=== PATIENT | male | born 1980 | race Caucasian/White ===

== ENCOUNTER → 2018-10-11 | Outpatient (CLI) | payer OTHER, SELFPAY ==
[2018-10-11 08:14] LABS: HEMATOCRIT 41.2 % (42.0-52.0); HEMOGLOBIN 13.8 g/dl (13.5-17.5); MEAN CORPUSCULAR HEMOGLOBIN 30.1 pg (27.0-33.0); MEAN CORPUSCULAR HGB CONC 33.5 g/dl (32.0-36.5); MEAN CORPUSCULAR VOLUME 89.8 fl (80.0-96.0); PLATELET COUNT, AUTOMATED 161 10^3/uL (150-450); RED BLOOD COUNT 4.59 10^6/uL (4.30-6.10); WHITE BLOOD COUNT 4.8 10^3/uL (4.0-10.0)
[2018-10-11 08:30] LABS: ALBUMIN 3.8 GM/DL (3.2-5.2); ALT/SGPT 18 U/L (12-78); BILIRUBIN,TOTAL 0.3 MG/DL (0.2-1.0); BLOOD UREA NITROGEN 16 MG/DL (7-18); CALCIUM LEVEL 9.2 MG/DL (8.5-10.1); CARBON DIOXIDE LEVEL 26 MEQ/L (21-32); CHLORIDE LEVEL 106 MEQ/L (98-107); CREATININE FOR GFR 0.83 MG/DL (0.70-1.30); GLOMERULAR FILTRATION RATE > 60.0 (>60); GLUCOSE, FASTING 85 MG/DL (70-100); SODIUM LEVEL 142 MEQ/L (136-145); TOTAL PROTEIN 7.2 GM/DL (6.4-8.2)
[2018-10-11 09:41] LABS: CHLAMYDIA DNA AMPLIFICATION NEGATIVE (NEGATIVE); GC DNA AMPLIFICATION NEGATIVE (NEGATIVE)
[2018-10-11 10:52] LABS: HEPATITIS B SURFACE ANTIGEN NEGATIVE (NEGATIVE)
[2018-10-11 11:20] LABS: HIV 1&2 SCREEN CENTAUR NEGATIVE (NEGATIVE)
[2018-10-11 11:46] LABS: HEPATITIS C VIRUS ABY INDEX > 11.0 INDEX (<0.8)
--- NOTE | 2018-10-13 07:48 | ECGEPIP ---
Stationary ECG Study [facility] Test Date: 2018-10-11 Pat Name: JOE HERNÁNDEZ Department: Room: - Gender: M [employer]: : 1980 Requested By: Hernán Rodriguez Order Number: [id number] Reading MD: Honorio Epps Measurements Intervals [place] Rate: 66 P: 52 AL: 173 QRS: -3 QRSD: 102 T: 46 QT: 410 QTc: 431 Interpretive Statements SINUS RHYTHM WITH SINUS ARRHYTHMIA Comparison tracing not on file Electronically Signed On 10-13-2018 7:47:50 EST by Honorio Epps
== END ==
LOC: M LAB 07:17
PROVIDERS: ATTEND Family Medicine
DX: F11.20 Opioid dependence, uncomplicated (principal)

== ENCOUNTER → 2018-10-11 | Outpatient (CLI) | payer OTHER, SELFPAY ==
[2018-10-11 08:07] LABS: APPEARANCE, URINE CLEAR (CLEAR); BACTERIA, URINE AUTO NEGATIVE (NEGATIVE); BILIRUBIN, URINE AUTO NEGATIVE (NEGATIVE); BLOOD, URINE BLOOD NEGATIVE (NEGATIVE); COLOR, URINE YELLOW (YELLOW); GLUCOSE, URINE (UA) AUTO NEGATIVE (NEGATIVE); KETONE, URINE AUTO NEGATIVE (NEGATIVE); LEUKOCYTE ESTERASE, URINE AUTO NEGATIVE (NEGATIVE); MUCUS, URINE SMALL (NEGATIVE); NITRITE, URINE AUTO NEGATIVE (NEGATIVE); PROTEIN, URINE AUTO NEGATIVE (NEGATIVE); RBC, URINE AUTO 0 /HPF (0-3); SPECIFIC GRAVITY URINE AUTO 1.027 (1.002-1.035); SQUAMOUS EPITHELIAL CELL UR AU 0 /HPF (0-6); UROBILINOGEN, URINE AUTO 0.2 mg/dL (0.0-2.0); WBC, URINE AUTO 0 /HPF (0-3)
[2018-10-11 08:14] LABS: BASO # 0.1 10^3/uL (0.0-0.2); BASO % 1.3 % (0.0-1.0); EOS # 0.2 10^3/uL (0.0-0.50); EOS % 4.8 % (0.0-3.0); HEMATOCRIT 41.1 % (42.0-52.0); HEMOGLOBIN 13.9 g/dl (13.5-17.5); LYMPH % 40.8 % (24.0-44.0); MEAN CORPUSCULAR HEMOGLOBIN 30.4 pg (27.0-33.0); MEAN CORPUSCULAR HGB CONC 33.8 g/dl (32.0-36.5); MEAN CORPUSCULAR VOLUME 89.9 fl (80.0-96.0); MONO # 0.6 10^3/uL (0.0-0.8); MONO % 13.1 % (0.0-5.0); NEUTROPHILS # 1.9 10^3/uL (1.8-7.7); NEUTROPHILS % 39.8 % (36.0-66.0); PLATELET COUNT, AUTOMATED 164 10^3/uL (150-450); RED BLOOD COUNT 4.57 10^6/uL (4.30-6.10); WHITE BLOOD COUNT 4.8 10^3/uL (4.0-10.0)
[2018-10-11 08:21] LABS: ALBUMIN 3.8 GM/DL (3.2-5.2); ALT/SGPT 19 U/L (12-78); BILIRUBIN,TOTAL 0.3 MG/DL (0.2-1.0); BLOOD UREA NITROGEN 16 MG/DL (7-18); CALCIUM LEVEL 9.1 MG/DL (8.5-10.1); CARBON DIOXIDE LEVEL 24 MEQ/L (21-32); CHLORIDE LEVEL 107 MEQ/L (98-107); CREATININE FOR GFR 0.83 MG/DL (0.70-1.30); GLOMERULAR FILTRATION RATE > 60.0 (>60); GLUCOSE, FASTING 87 MG/DL (70-100); SODIUM LEVEL 141 MEQ/L (136-145); TOTAL PROTEIN 7.1 GM/DL (6.4-8.2)
[2018-10-11 10:47] LABS: HEPATITIS B SURFACE ANTIBODY POSITIVE (POSITIVE)
[2018-10-11 10:56] LABS: HEPATITIS B SURFACE ANTIGEN NEGATIVE (NEGATIVE)
[2018-10-11 11:46] LABS: HEPATITIS C VIRUS ABY INDEX > 11.0 INDEX (<0.8)
== END ==
LOC: M LAB 07:09
PROVIDERS: ATTEND Physician Assistant Medical
DX: Z02.2 Encounter for examination for admission to residential institution (principal)

== ENCOUNTER 2018-12-27 11:58 | Emergency (ER) | payer OTHER ==
[~2018-12-27] VITALS: Ht 172.7 cm; Wt 78.0 kg
[2018-12-27 11:59] VITALS: BP 140/79
[2018-12-27] MEDS ORDERED: METH10CO PO (12:33)
[2018-12-27] MEDS ORDERED: diphenhydrAMINE INJ 50MG/ML VIAL (J1200) IV STA (14:12)
[2018-12-27] MEDS ORDERED: NS 1,000 ML IV ONE (14:15)
--- NOTE | 2018-12-27 14:51 | REP ---
Clinical: Head injury . Comparison: None . Findings: The ventricles, sulci, and cisterns are normal in position and appearance. Santiago-white differentiation is maintained. No acute intracranial hemorrhage, mass/mass effect, pathology or trauma/injury. No evidence for acute infarction. No extra-axial fluid collection. Calvarium is intact. Paranasal sinuses and mastoid air cells are clear. Impression: Normal noncontrast head CT. No evidence for acute intracranial pathology or trauma/injury. Electronically Signed by Jesus Alberto Johnson MD 12/27/2018 02:42 P
[2018-12-27 15:22] LABS: HEMATOCRIT 43.9 % (42.0-52.0); HEMOGLOBIN 14.6 g/dl (13.5-17.5); MEAN CORPUSCULAR HEMOGLOBIN 29.9 pg (27.0-33.0); MEAN CORPUSCULAR HGB CONC 33.3 g/dl (32.0-36.5); PLATELET COUNT, AUTOMATED 220 10^3/uL (150-450); RED BLOOD COUNT 4.88 10^6/uL (4.30-6.10); WHITE BLOOD COUNT 15.5 10^3/uL (4.0-10.0)
[2018-12-27] MEDS ORDERED: BENZTROPINE MESYLATE 2MG/2ML VIAL IV ONE (16:00)
[2018-12-27 16:10] LABS: ALT/SGPT 63 U/L (12-78); BILIRUBIN,DIRECT 0.2 MG/DL (0.0-0.2); BILIRUBIN,TOTAL 0.9 MG/DL (0.2-1.0); BLOOD UREA NITROGEN 24 MG/DL (7-18); CALCIUM LEVEL 8.8 MG/DL (8.5-10.1); CARBON DIOXIDE LEVEL 25 MEQ/L (21-32); CHLORIDE LEVEL 104 MEQ/L (98-107); CPK CREATINE PHOSPHOKINASE 6186 U/L (39-308); CREATININE FOR GFR 1.12 MG/DL (0.70-1.30); GLOMERULAR FILTRATION RATE > 60.0 (>60); GLUCOSE, FASTING 98 MG/DL (70-100); SODIUM LEVEL 136 MEQ/L (136-145); TOTAL PROTEIN 7.4 GM/DL (6.4-8.2)
[2018-12-27 16:15] LABS: ATYPICAL LYMPH 3 % (0-5); BASOPHILS 3 % (0-4); LYMPHOCYTES 16 % (16-52); MONOCYTES 9 % (0-8); NEUTROPHILS 69 % (35-75)
[2018-12-27 16:16] LABS: PLATELET ESTIMATE NORMAL (NORMAL)
[2018-12-27] MEDS ORDERED: LORazepam 2 MG/ML VIAL (J2060) IV STA (16:44)
== END 2018-12-27 16:59 | disposition left against medical advice (07) ==
LOC: M ED 11:58
DX: M62.82 Rhabdomyolysis (principal); G25.9 Extrapyramidal and movement disorder, unspecified; F19.10 Other psychoactive substance abuse, uncomplicated; F19.20 Other psychoactive substance dependence, uncomplicated; Z72.0 Tobacco use; Z79.899 Other long term (current) drug therapy; Z53.21 Procedure and treatment not carried out due to patient leaving prior to being seen by health care provider
CPT/HCPCS: 70450; 80048; 80076; 82550; 85025; 96374; 96375; 99283; J1200

== ENCOUNTER → 2019-10-28 | Outpatient (CLI) | payer OTHER ==
[~2019-10-28] MED LIST: METH10CO PO
== END ==
LOC: M OUTALCOH 08:22
PROVIDERS: ATTEND Psychiatry & Neurology Addiction Medicine
DX: F16.10 Hallucinogen abuse, uncomplicated (principal)

== ENCOUNTER 2019-11-10 08:00 | Outpatient (RCR) | payer OTHER | END 2019-11-26 | LOC: M OUTALCOH 08:00 | PROVIDERS: ATTEND Psychiatry & Neurology Addiction Medicine | DX: F16.10 Hallucinogen abuse, uncomplicated (principal) ==

== ENCOUNTER → 2020-03-26 | Outpatient (CLI) | payer MEDICAID, OTHER, SELFPAY ==
--- NOTE | 2020-03-26 20:35 | ECGEPIP ---
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
== END ==
LOC: M LAB 13:54
PROVIDERS: ATTEND Family Medicine
DX: F11.20 Opioid dependence, uncomplicated (principal)

== ENCOUNTER 2020-03-30 22:27 | Emergency (ER) | payer MEDICAID, OTHER, SELFPAY ==
[~2020-03-30] VITALS: Ht 172.7 cm; Wt 82.2 kg
[2020-03-31] MEDS ORDERED: GI COCKTAIL 50ML BTL(HYOSCYAMINE/MAALOX/LIDOCAINE VISCOUS)(1:3:1) PO ONE (01:30)
[2020-03-31 02:10] VITALS: BP 145/90
--- NOTE | 2020-03-31 07:26 | REP ---
Clinical: Concern for foreign body. Technique: AP and lateral soft tissue neck radiographs (three total views). Findings: Prevertebral and paravertebral soft tissues are normal. The airway is patent and midline. The osseous structures demonstrate chronic degenerative changes primarily at the C5-6 and C6-7 level with bulky anterior osteophytosis. No obvious foreign body. Impression: No obvious foreign body. Degenerative changes of the cervical spine. Electronically Signed by Jesus Alberto Johnson MD 03/31/2020 07:17 A
== END 2020-03-31 02:14 | disposition home or self-care (01) ==
LOC: M ED 22:27
DX: R09.89 Other specified symptoms and signs involving the circulatory and respiratory systems (principal); F17.210 Nicotine dependence, cigarettes, uncomplicated

== ENCOUNTER → 2020-12-17 | Outpatient (REF) | payer OTHER | LOC: M LAB REF 11:35 | PROVIDERS: ATTEND Surgery | DX: Z11.52 Encounter for screening for COVID-19 (principal) ==

== ENCOUNTER 2022-07-16 03:21 | Emergency (ER) | payer MEDICAID, OTHER ==
[~2022-07-16] VITALS: Ht 172.7 cm; Wt 57.0 kg
[2022-07-16 03:21] VITALS: BP 138/78
[2022-07-16] MEDS ORDERED: DOXYCYCLINE HYCLATE 100MG TABLET PO ONE (08:00)
[2022-07-16] MEDS ORDERED: DOXY-443 PO (08:04)
== END 2022-07-16 08:27 | disposition home or self-care (01) ==
LOC: M ED 03:21
DX: R21 Rash and other nonspecific skin eruption (principal); B95.8 Unspecified staphylococcus as the cause of diseases classified elsewhere; Z86.19 Personal history of other infectious and parasitic diseases; F17.200 Nicotine dependence, unspecified, uncomplicated; F19.10 Other psychoactive substance abuse, uncomplicated

== ENCOUNTER 2022-07-26 19:36 | Emergency (ER) | payer MEDICAID, OTHER ==
[~2022-07-26] VITALS: Ht 172.7 cm; Wt 51.8 kg
[~2022-07-26 19:36] MED LIST changes: +DOXY-443 PO
[2022-07-26 20:24] LABS: BASO % 0.4 % (0.0-1.0); EOS # 0.1 10^3/uL (0.0-0.5); EOS % 0.7 % (0.0-3.0); HEMATOCRIT 39.4 % (42.0-52.0); HEMOGLOBIN 12.6 g/dl (13.5-17.5); LYMPH # 1.2 10^3/uL (1.5-5.0); LYMPH % 10.5 % (24.0-44.0); MEAN CORPUSCULAR HEMOGLOBIN 30.4 pg (27.0-33.0); MEAN CORPUSCULAR VOLUME 95.2 fl (80.0-96.0); MONO # 0.9 10^3/uL (0.0-0.8); MONO % 8.3 % (2.0-8.0); NEUTROPHILS # 8.8 10^3/uL (1.5-8.5); NEUTROPHILS % 79.7 % (36.0-66.0); PLATELET COUNT, AUTOMATED 211 10^3/uL (150-450); RED BLOOD COUNT 4.14 10^6/uL (4.30-6.10)
[2022-07-26 20:59] LABS: ALBUMIN 3.5 GM/DL (3.2-5.2); ALKALINE PHOSPHATASE 94 U/L (45-117); ALT/SGPT 33 U/L (12-78); AST/SGOT 36 U/L (7-37); BILIRUBIN,DIRECT 0.2 MG/DL (0.0-0.2); BILIRUBIN,TOTAL 0.9 MG/DL (0.2-1.0); BLOOD UREA NITROGEN 19 MG/DL (7-18); CALCIUM LEVEL 8.5 MG/DL (8.5-10.1); CARBON DIOXIDE LEVEL 24 MEQ/L (21-32); CHLORIDE LEVEL 108 MEQ/L (98-107); CREATININE FOR GFR 0.59 MG/DL (0.70-1.30); GLOMERULAR FILTRATION RATE > 60.0 (>60); GLUCOSE, FASTING 76 MG/DL (70-100); POTASSIUM SERUM 4.1 MEQ/L (3.5-5.1); SODIUM LEVEL 140 MEQ/L (136-145); TOTAL PROTEIN 6.7 GM/DL (6.4-8.2)
[2022-07-26] MEDS ORDERED: DOXY-443 PO (22:43)
[2022-07-26] MEDS ORDERED: DOXYCYCLINE HYCLATE 100MG TABLET PO ONE (23:50)
[2022-07-27] VITALS: BP 148/90
== END 2022-07-27 | disposition home or self-care (01) ==
LOC: M ED 19:36
DX: L03.115 Cellulitis of right lower limb (principal); L03.116 Cellulitis of left lower limb; F19.10 Other psychoactive substance abuse, uncomplicated; Z86.19 Personal history of other infectious and parasitic diseases

== ENCOUNTER 2024-06-23 08:48 | Emergency (ER) | payer MEDICAID, OTHER ==
[~2024-06-23] VITALS: Ht 172.7 cm; Wt 95.9 kg
[~2024-06-23 08:48] MED LIST changes: +DOXY-323 PO; -DOXY-443 PO
[2024-06-23] MEDS ORDERED: MELO15TA28 PO (08:58)
[2024-06-23] MEDS ORDERED: BUPR8SUB (08:58)
[2024-06-23] MEDS: LIDOCAINE W/EPINEPHRINE 1% 20ML VIAL SC ONE (11:10)
[2024-06-23] MEDS: CEPHALEXIN 500 MG CAP PO ONE (11:33)
[2024-06-23] MEDS: BOOSTRIX VACCINE (TETANUS/DIPHTH/ACEL. PERTUSSIS) 0.5ML SYR IM ONE (11:34)
[2024-06-23] MEDS ORDERED: CEPH500T PO (11:57)
[2024-06-23 12:05] VITALS: BP 148/82; TEMP 97.2; O2SAT 99
== END 2024-06-23 12:06 | disposition home or self-care (01) ==
LOC: M ED 08:48
DX: S01.112A Laceration without foreign body of left eyelid and periocular area, initial encounter (principal); Y92.149 Unspecified place in prison as the place of occurrence of the external cause; Y93.9 Activity, unspecified; Y99.9 Unspecified external cause status; Y04.2XXA Assault by strike against or bumped into by another person, initial encounter; Z23 Encounter for immunization; Z79.899 Other long term (current) drug therapy